=== PATIENT | female | born 1975 | race Two or more races ===

== ENCOUNTER 2017-08-06 12:08 | Outpatient (CLI) | payer OTHER | END 2017-08-06 12:18 | disposition home or self-care (01) | LOC: MAMO-SONO 12:08 | DX: Z12.31 Encounter for screening mammogram for malignant neoplasm of breast (principal); Z11.3 Encounter for screening for infections with a predominantly sexual mode of transmission; Z13.1 Encounter for screening for diabetes mellitus ==

== ENCOUNTER 2017-09-23 12:21 | Outpatient (CLI) | payer OTHER | END 2017-09-23 12:31 | disposition home or self-care (01) | LOC: SONOGRAMA 12:21 | DX: E04.9 Nontoxic goiter, unspecified (principal); R10.2 Pelvic and perineal pain ==